=== PATIENT | female | born 1985 | race Caucasian/White ===

== ENCOUNTER 2024-06-18 09:48 | Outpatient (REF) | payer SELFPAY ==
--- OUTSIDE RECORDS SUMMARY | 2024-06-18 10:48 | XMS_ITS | Encounter Summary ---
Author Organization [employer] Address [address] [facility] 7t [place] [address] Care Team Providers Care Remotely Operated Vehicle Name Role Phone Unavailable Primary Care Provider Unavailabl e Reason for Visit * Reason Onset Date Comments chartprep 06/17/2024 Encounter Details Date Type Department Care Team (Late st Contact Info) Description 06/17/2024 Telephone [facility] [address] [place] [address] Lisa Guerin MA chartprep Social History Tobacco Use Types Packs/Day Years Used Date Smoking Tobacco: Never Assessed Alcohol Answer Date Recorded How often do you have a drink containing alcohol ? 2 06/18/2024 How many drinks containing a lcohol do you have on a typical day when you are drinking? 0 06/18/2024 How often do you have six or more drinks on one occasion? 0 06/18/2024 Depression Answer Date Recorded Patient Health Questionnaire-9 Score 6 06/18/2024 Patient Health Questionnaire-9 Score 6 06/18/2024 Last PHQ-9: Questionnaire Data Not on file 0 06/18/2024 Housing Stability Answer Date Recorded What is your housing situation today? I have rik garcia 06/18/[address] you li ve. Do you have problems with any of the following? None of the above 06/18/2024 Food Insecurity Answer Date Recorded Within the past 12 months, y ou worried that your food would run out before you got money to buy more: Never True 06/18/2024 Within the past 12 months,th e food you bought just didn't last and you didn't have enough money to get more: Never True 11/2024 Transportation Answer Date Recorded In the past 12 months, has l ack of transportation kept you from medical appts, meetings, work or from getting things needed for daily living? No 06/18/2024 Utilities Answer Date Recorded In the past 12 months, has t he electric, gas, oil or water company threatened to shut off services in your home? No 06/18/2024 Depression Answer Date Recorded Patient Health Questionnaire-2 Score 2 06/18/2024 Internet Access Answer Date Recorded Internet Access Q1 Yes 06/18/2024 Internet Access Q2 Not on file 06/18/2024 Comments Unknown Sex and Gender Information Value Date Recorded Sex Assigned at Female 01/06/2022 4:04 PM EDT Legal Sex Female 4:04 PM EDT Gender Identity Female 06/17/2024 11:30 AM EDT Sexual Orientation Don't know 06/17/2024 11 :32 AM EDT documented as of this encounter Miscellaneous Notes * Telephone Encounter - Lisa Guerin MA - 06/17/2024 1:13 PM EDT Chart Prep Labs: not applicable Images: not applicable Vaccines due: yes Referrals: not applicable Screenings: pap smear Overdue care gaps: SBIRT, SDOH, PHQ-9, TOMMIE-7, Oral health screening, Disability screen, and Tobacco documented in this encounter Plan of Treatment Not on file documented as of this encounter Visit Diagnoses Not on filedocumented in this encounter
--- OUTSIDE RECORDS SUMMARY | 2024-06-18 10:48 | XMS_ITS | Encounter Summary ---
Author Organization [employer] Address 75 [facility] 7t [place] [address] Care Team Providers Care Fiber Optic Assembly Worker Name Role Phone Camille Mccain GO Primary Care Provider [phone] Encounter Details Date Type Department Care Team (Latest Contact Info) Description 06/18/2024 Travel Social History Tobacco Use Types Packs/Day Years Used Date Smoking Tobacco: Never Passive Smoke Exposure: Never Smokeless Tobacco: Never Alcohol Use Standard Drinks/Week Comments Yes 0 (1 standard drink = 0.6 oz pur e alcohol) 1-2 drinks a month Alcohol Answer Date Recorded How often do [...] AM EDT documented as of this encounter Plan of Treatment Not on file documented as of this encounter Visit Diagnoses Not on filedocumented in this encounter Additional Health Concerns Assessment Noted Time PHQ-9 Depression Total Score: 6 06/19/19 9:47 AM EDT documented as of this encounter Care Teams Fiber Optic Assembly Worker Relationship Specialty Start Date End Date Camille Mccain NP [address] [place] [id number] PCP - General Family Medicine 06/18/24 documented as of this encounter
--- OUTSIDE RECORDS SUMMARY | 2024-06-18 10:48 | XMS_ITS | Encounter Summary ---
Author Organization [employer] Address 75 [facility] 7t [place] [address] Care Team Providers Care Narcotics Investigator Name Role Phone Camille Mccain NP Primary Care Provider [phone] Reason for Visit * Reason Comments New patient Encounter Details Date Type Department Care Team (Late st Contact Info) Description 06/18/2024 9:00 AM EDT Office Visit [facility] [address] [place] [address] Camille Mccain NP [address] [place] [address] PTSD (post-traumatic stress disorder) (Primary Dx); Encounter for health-related screening Social History Tobacco Use Types Packs/Day Years Used Date Smoking Tobacco: Never Passive Smoke Exposure: Never Smokeless Tobacco: Never Tobacco Cessation:Counseling Given: Not Answered Alcohol Use Standard Drinks/Week Comments Yes 0 [...] AM EDT documented as of this encounter Last Filed Vital Signs Vital Sign Reading Time Taken Comments Blood Pressure 134/81 06/18/2024 9:06 AM EDT Pulse 78 06/18/2024 9:06 AM EDT Temperature 37.4 ??C (99.3 ??F) 06/18/2024 9:06 AM ED T Respiratory Rate 20 06/18/2024 9:06 AM EDT Oxygen Saturation 98% 06/18/2024 9:06 AM EDT Inhaled Oxygen Concentration - - Weight 67.1 kg (148 lb) 06/18/2024 9:06 AM EDT Height 165.1 cm (5' 5 ) 06/18/2024 9:06 AM EDT Body Mass Index 24.63 06/18/2024 9:06 AM EDT documented in this encounter Plan of Treatment Scheduled Orders Name Type Priority Associated Diagnoses Orde r Schedule CBC auto differential Lab Routine Encounter for health-related screening Expected: 06/18/2024 (Approximate), Expires: 06/18/2025 Comprehensive Metabolic Panel Lab Routine Encounter for health-related screening Expected: 06/18/2024 (Approximate), Expires: 06/18/2025 Lipid Panel, Standard Lab Routine Encounter for health-related screening Expected: 06/18/2024 (Approximate), Expires: 06/18/2025 documented as of this encounter Visit Diagnoses Diagnosis PTSD (post-traumatic stress disorder)- Primary Posttraumatic stress disorder Encounter for health-related screening documented in this encounter Additional Health Concerns Assessment Noted Time PHQ-9 Depression Total Score: 6 06/19/19 25 9:47 AM EDT documented as of this encounter Care Teams Narcotics Investigator Relationship Specialty Start Date End Date Camille Mccain NP [address] [place] [id number] PCP - General Family Medicine 06/18/24 documented as of this encounter
--- OUTSIDE RECORDS SUMMARY | 2024-06-18 10:48 | XMS_ITS | Clinical Summary ---
Author Organization [employer] Address [address] [facility] 7t [place] [address] Care Team Providers Care V Belt Coverer Name Role Phone Camille Mccain NP Primary Care Provider [phone] Allergies Active Allergy Reactions Criticality Noted Date Comments Amoxicillin Hives 06/18/2024 Medications hydrOXYzine HCl (Atarax) 25 MG tablet Take 25 mg by mouth every 6 (six) hours if needed for anxiety. Active escitalopram (Lexapro) 10 MG tablet Take 1 tablet (10 mg) by mouth Once per day. 30 tablet 2 5 025 Active escitalopram (Lexapro) 10 MG tablet Take 1 tablet by mouth Once per day. 5 025 Discontinued(Re order (will not trigger notification to Pharmacy)) diclofenac (Cataflam) 50 MG tablet Take 50 mg by mouth 2 times daily. 5 025 Discontinued(Me d list cleanup (will not trigger notification to Pharmacy)) fluconazole (Diflucan) 150 MG tablet Take 150 mg by mouth Once per day. 4 025 Discontinued(Me d list cleanup (will not trigger notification to Pharmacy)) Active Problems Problem Noted Date Diagnosed Date PTSD (post-traumatic stress disorder) 06/18/2024 Impacted cerumen, bilateral 01/23/2011 Encounters Date Type Department Care Team Description 06/18/2024 9:00 AM EDT Office Visit [facility] [address] [place] [id number] Camille Mccain NP PTSD (post-traumatic stress disorder) (Primary Dx); Encounter for health-related screening 06/18/2024 Travel 06/17/2024 Telephone [facility] [address] [place] [address] Lisa Guerin MA chartprep 06/16/2024 Telephone [facility] [address] [place] [address] Camille Mccain NP New patient visit from Last 3 Months Family History Medical History Relation Name Comments Heart disease Mother Uterine cancer Paternal Grandmother Relation Name Status Comments Father Mother Paternal Grandmother Social History Tobacco Use Types Packs/Day Years [...] Don't know 06/17/2024 11 :32 AM EDT Last Filed Vital Signs Vital Sign Reading [...] Mass Index 24.63 06/18/2024 9:06 AM EDT Plan of Treatment Health Maintenance Due Date Last Done Comments HIV Screening 1986 Family Planning (PISQ) 2001 Hepatitis C Screening 2004 DTaP/Tdap/Td Vaccines (1 - Tdap) 2005 Hepatitis B Vaccines (1 of 3 - 19+ 3-dose series) 2005 Pap Smear 11/24/2007 Cervical Cancer Screening 2016 HPV/Cotest 2016 COVID-19 Vaccine ( - 2023-2 5 season) 2023 Influenza Vaccine (#1) 2023 Alcohol/Substance Use Screening 06/18/2025 06/18/2024 Depression Screening 06/18/2025 06/18/2024, 06/18/2024 SDOH Screening 06/18/2025 06/18/2024 Tobacco Screening 06/18/2025 06/18/2024 Zoster Vaccines (1 of 2) 2036 RSV Patients and Patients Aged 60 years or older (1 - 1-dose 75+ series) 2061 HIB Vaccines Aged Out No longer eligi ble based on patient's age to complete this topic HPV Vaccines Aged Out No longer eligi ble based on patient's age to complete this topic Hepatitis A Vaccines Aged Out No long er eligible based on patient's age to complete this topic IPV Vaccines Aged Out No longer eligi ble based on patient's age to complete this topic Meningococcal Vaccine Aged Out No glenroy katherine eligible based on patient's age to complete this topic Pneumococcal Vaccine: Pediatrics (0 to 5 Years) and At-Risk Patients (6 to 49) Years) Aged Out No longer eligible b ased on patient's age to complete this topic RSV under 20 months Aged Out No longe r eligible based on patient's age to complete this topic Rotavirus Vaccines Aged Out No longer eligible based on patient's age to complete this topic Insurance [facility] Care Teams V Belt Coverer Relationship Specialty Start Date End Date Camille Mccain NP [address] [place] [id number] PCP - General Family Medicine 06/18/24
--- OUTSIDE RECORDS SUMMARY | 2024-06-18 10:48 | XMS_ITS | Continuity of Care Document ---
Author Organization [facility] Address [address] [place] [address] Phone Care Team Providers Care Convention Services Manager Name Role Phone UDS, Nurse Unavailable Unavailable Allergies, Adverse Reactions, Alerts Substance Reaction Status Criticality benzoyl peroxide Active No Informat ion WARNIN allergy(ies) could not be collected because the type is not supported. Please contact the source practice for further details. Medications Medication Instructions Dosage Effective Dates (start - stop) Status Comments fluconazole 150 mg tablet take 2 tablet by oral route once weekly for 2 weeks - Active marijuana INHALATION MISCELL - Active Procedures Procedure Date Resin-Based Composite - Three Surfaces, Posterior Sealant Exclusion Resin-Based Composite - Two Surfaces, Po sterior Dental Treatment Plan Completed Preventive checkup, est, 18-39 yrs Limited Oral Evaluation - Problem Focuse d Intraoral - Periapical - First Film Intra-oral Xrays have been reviewed Sealant Exclusion Preventive checkup, est, 18-39 yrs New Patient In Take Visit Prophylaxis - Adult Sealant Exclusion Screening Of A Patient Caries Risk Assessment, Low Risk 2019 Self-Management Goal Setting . Oral Hygiene Instruction Prophylaxis - Adult Bitewings - Four Films Screening Of A Patient Caries Risk Assessment, Low Risk 2017 Self-Management Goal Setting . Intra-oral Xrays have been reviewed Prophylaxis - Adult Screening Of A Patient Caries Risk Assessment, Moderate Risk Ap Self-Management Goal Setting . Prophylaxis - Adult Screening Of A Patient Caries Risk Assessment, Moderate Risk Oc Self-Management Goal Setting . Periodic Oral Evaluation Bitewings - Four Films Caries Risk Assessment, Moderate Risk Ju Advance Directives Directive Yes / No Effective Date File Name No Information Encounters Encounter Description Practice Location Reason(s) For Visit Diagnoses Date Provider Providers Copied on Encounter [facility], [address] [place] [address], [id number] , tel: [phone] [facility] No Information 2 UDS Nurse. [address] [place] [address], [id number], . tel:[phone] [facility], [address] [place] [address], [id number] , tel: [phone] [facility] Fractured dental restorative material with loss of materialDental sealant statusEncounter for dental exam and cleaning w abnormal findings 1 Gerardo Tina Hoang. [address] [place] [address], [id number], [place]. tel: [phone] [facility], [address] [place] [address], [id number] , tel: [phone] [facility] No Information 1 Brandon Manuel. [address] [place] [address], [id number], . tel:[phone] Referring Provider: Mar Taylor, [address] [place] [address], [facility]. tel:[phone] Preventive checkup, est, 18-39 yrs [facility], [address] [place] [address], [id number] , [place] tel: [phone] [facility] preventive exam (chief complaint)P natalee (chief complaint) Physical examScreening, lipidScreening, anemia, deficiency, ironScreening for diabetes mellitusTinea versicolor 1 Brandon Manuel. [address] [place] [address], [id number], . tel: [phone] Referring Provider: Mar Taylor, [address] [place] [address], [id number]. tel:[phone] [facility], [address] [place] [address], [id number] , [place] tel: [phone] [facility] No Information 1 Brandon Manuel. [address] [place] [address], [id number], . tel: [phone] [facility], [address] [place] [address], [id number] , tel: [phone] [facility] Encounter for dental exam and cleaning w abnormal findingsEncounter for dental exam and cleaning w/o abnormal findingsDental sealant status 1 Gerardo Hoang. [address] [place] [address], [address], . tel: [phone] Preventive checkup, est, 18-39 yrs [facility], [address] [place] [address], [id number] , [place] tel: [phone] [facility] Establish care (chief complaint)P natalee (chief complaint) Encounter to establish carePhysical examScreening, lipid May-0 0 Brandon Manuel. [address] [place] [address], [id number], [place]. tel: [phone] Referring Provider: Mar Taylor, [address] [place] [address], [address]. tel:[phone] [facility], [address] [place] [address], [id number] , tel: [phone] [facility] No Information May-0 4-202 0 [employer]. [address] [place], [address], [place]. tel: [phone] Referring Provider: Mar Taylor, [address] [place] [address], [id number]. tel:[phone] [facility], [address] [place] [address], [id number] , [place] tel: [phone] [facility] Prophy (chief complaint) Encounter for dental exam and cleaning w abnormal findingsDental sealant statusRisk for dental caries, low Feb-0 5-202 0 Marcio Sonia. [address] [place] [address], [id number], [place]. tel: [phone] [facility], [address] [place] [address], [id number] , [place] tel: [phone] [facility] Prophy (chief complaint) Encounter for dental exam and cleaning w abnormal findingsRisk for dental caries, low Oct- 0-201 8 Marcio Sonia. [address] [place] [address], [id number], [place]. tel: [phone] [facility], [address] [place] [address], [id number] , [place] tel: [phone] [facility] Check-up/Cl eaning (chief complaint) Encounter for dental exam and cleaning w abnormal findings Jun-0 5-201 8 Marcio Sonia. [address] [place] [address], [id number], [place]. tel: [phone] [facility], [address] [place] [address], [id number] , [place] tel: [phone] [facility] Encounter for dental exam and cleaning w abnormal findings Oct-0 5-201 7 Jodi Gaming. [address] [place] [address], [id number], [place]. tel: [phone] Referring Provider: ADY Bellamy, [address] [place] [address], [id number] . tel:[phone] [facility], [address] [place] [address], [id number] , [place] tel: [phone] [facility] Encounter for dental exam and cleaning w abnormal findings 201 7 No Information Family History Family Member Type Diagnosis Age At Onset Mother Problem (finding) organ failure due to me dications Brother Problem (finding) Alive and well Father Problem (finding) Car accident Sister Problem (finding) Alive and well Immunizations Vaccine Date Status Comments SARS-COV-2 (COVID-19) vaccin e, mRNA, spike protein, LNP, preservative free, 100 mcg/0.5mL dose (Moderna) administered Note: [id number] ; Sour ce: Public Agency SARS-COV-2 (COVID-19) vaccin e, mRNA, spike protein, LNP, preservative free, 100 mcg/0.5mL dose (Moderna) administered Note: [id number] ; Sour ce: Public Agency Tdap administered Source: Other R egistry Payers Payer name Insurance type Covered republican ID Authoriza tion(s) No Information Social History Type Description Quantity Date Captured Comments Alcohol Use Details Unknown Caffeine Use Details Unknown Tobacco Use Status No Information Smoking Status No Information Sex Female Sexual Orientation Straight or heterosexual Dec Gender Identity Female Chief Complaint And Reason For Visit No Information Reason For Referral Reason For Referral No Information History Of Present Illness Encounter Date Complaint History Of Prese nt Illness preventive exam Plan covid, done on phq, doneprapare, donescreening labs, agrees Plan TDAP up to dateF dilia vaccine declinedHIV testing declinedPap smear two years ago, normal papPortal set up Establish care Patient is here to establish care. [facility]. No issues today would just like to establish. Prophy Prophy Check-up/Cleaning Functional Status Date Functional Assessmen t No Information Instructions Date Instruction Additional Infor mation Itraconazole 200mg d aily for 5 days.Follow up if symptoms persist. Related to Tinea versicolor Physical Next due 1 year. Manuelu le PAP. Related to Physical exam Next due 1 year Related to Physi patrice exam Assessments Type Assessment Date No Information Patient Care Teams Name Effective Dates (start - stop) Status Members No Information
--- OUTSIDE RECORDS SUMMARY | 2024-06-18 10:48 | XMS_ITS | Encounter Summary ---
Author Organization [employer] Address [address] [facility] 7t h Floor [place] [id number] Care Team Providers Care Video Control Engineer Name Role Phone Camille Mccain NP Primary Care Provider [phone] Reason for Visit * Reason Onset Date Comments New patient visit 06/16/2024 Encounter Details Date Type Department Care Team ([facility] st Contact Info) Description 06/16/2024 Telephone [facility] MED[facility]INE [address] [place], [place] [phone] Camille Mccain NP [address] [place], [place] [phone] New patient visit Social History Tobacco Use Types Packs/Day Years [...] encounter Miscellaneous Notes * Telephone Encounter - Josie Bowling - 06/16/2024 2:51 PM EDT TC placed to patient for scheduling of new patient visit. Agreed to 06/18/24 with Camille Medical Conditions: Anxiety. Needs medication refill laxapro 25mg Last seen in [place] documented in this encounter Plan of Treatment Not on file documented as of this encounter Visit Diagnoses Not on filedocumented in this encounter Care Teams Video Control Engineer Relationship Specialty Start Date End Date Camille Mccain NP [address] [place] [id number] PCP - General Family Medicine 06/18/24 documented as of this encounter
[2024-06-18 11:46] LABS: MANUAL DIFF FLAG NO
[2024-06-18 12:08] LABS: Basophils Percent Auto 0.5 % (0-2); Eosinophils Absolute Auto 0.1 X10*3/uL (0.0-0.4); Eosinophils Percent Auto 0.9 % (0-4); Hematocrit 39.8 % (37.0-47.0); Hemoglobin 13.9 g/dl (12.0-16.0); Imm Gran Abs Auto 0.02 X10*3/uL (0.00-0.03); Imm Gran Pct Auto 0.3 % (0.0-0.4); Lymphocytes Absolute Auto 1.5 X10*3/uL (1.2-4.9); Lymphocytes Percent Auto 26.2 % (20-40); Mean Corpuscular HGB Conc 34.9 g/dl (31.0-35.0); Mean Corpuscular Hemoglobin 32.6 pg (27.0-33.0); Mean Corpuscular Volume 93.2 fL (80.0-98.0); Mean Platelet Volume 8.9 fL (9.4-12.3); Monocytes Absolute Auto 0.5 X10*3/uL (0.1-1.2); Neutrophils Absolute Auto 3.8 x10*3/uL (2.0-8.3); Neutrophils Percent Auto 64.1 % (45-73); Platelet Count 393 X10*3/uL (160-400); Red Blood Count 4.27 X10*6/uL (4.20-5.50); Red Cell Distribution Width 12.1 % (11.0-16.0); White Blood Count 5.9 X10*3/uL (4.8-10.8)
[2024-06-18 12:12] LABS: Alanine Aminotransferase 13 U/L (0-31); Albumin Level 4.6 g/dL (3.5-5.0); Alkaline Phosphatase 49 U/L (39-117); Anion Gap 9 (12-20); Aspartate Amino Transferase 22 U/L (5-31); Bilirubin Total 0.4 mg/dL (0.0-1.0); Blood Urea Nitrogen 11 mg/dL (9-16); Calcium 9.7 mg/dL (8.4-10.2); Carbon Dioxide 26 mmol/L (22-29); Chloride 108 mmol/L (96-108); Cholesterol 189 mg/dL (<200); Estimated Glomerular Filt Rate > 60; Glucose Random 96 mg/dL (60-115); HDL Cholesterol 51 mg/dL (>40); LDL Cholesterol Calculated 114 mg/dL (<100); Potassium 4.4 mmol/L (3.3-5.1); Sodium 139 mmol/L (135-145); Total Protein 7.9 g/dL (6.5-8.0); Triglycerides 123 mg/dL (<150)
== END 2024-06-18 09:49 | disposition home or self-care (01) ==
LOC: HO.HHCL 09:48
PROVIDERS: Visit Provider Nurse Practitioner
DX: Z13.6 Encounter for screening for cardiovascular disorders (principal); Z13.9 Encounter for screening, unspecified
CPT/HCPCS: 36415; 80053; 80061; 85025